=== PATIENT | male | born 1965 | race Caucasian/White ===

== ENCOUNTER 2021-05-09 19:44 | Observation (INO) ==
[2021-05-09] MEDS ORDERED: OXYMETAZOLINE 0.05% 30 ML BTL ONE (19:51)
[2021-05-09 21:22] LABS: Hematocrit (blood only) 39.5 % (42-52); Hemoglobin 13.4 g/dL (14.0-18.0); Immature Granulocytes # (auto) 0.04 K/uL (0.00-0.02); Immature Granulocytes % (auto) 0.3 %; Lymphocytes # (auto) 0.63 K/uL (1.2-3.4); Lymphocytes % (auto) 4.2 %; Mean Corpuscular Hemoglobin 29.8 pg (25-34); Mean Corpuscular Hgb Conc 33.9 g/dL (32-36); Mean Platelet Volume 9.2 fL (7.4-10.4); Monocytes # (auto) 0.18 K/uL (0.11-0.59); Monocytes % (auto) 1.2 %; Neutrophils # (auto) 14.18 K/uL (1.4-6.5); Neutrophils % (auto) 94.3 %; Platelet Count 315 K/uL (130-400); RDW Coefficient of Variation 13.2 % (11.5-14.5); RDW Standard Deviation 42.7 fL (36.4-46.3); Red Blood Count 4.49 M/uL (4.7-6.1); White Blood Count 15.03 K/uL (4.8-10.8)
[2021-05-09 21:47] LABS: Albumin Level 3.9 gm/dl (3.4-5.0); BUN Creatinine Ratio 18.7 (10-20); Calcium 9.2 mg/dl (8.5-10.1); Creatinine Clr Calc Pharmacy 70.7 ml/min; Est GFR (African American) 74.3 ml/min; Est GFR (Non-African American) 64.1 ml/min
[2021-05-09 21:48] LABS: Bilirubin,Total 0.7 mg/dl (0.2-1); Globulin 3.7 gm/dl (2.5-4.0); Total Protein 7.6 gm/dl (6.4-8.2)
--- NOTE | 2021-05-09 22:04 | Emergency Department Note ---
Impression & Plan Epistaxis, S/P nasal septoplasty ED Provider Note CHIEF COMPLAINT: Nosebleed HISTORY OF PRESENT ILLNESS: This 55-year-old male patient underwent septoplasty by Dr. Aguilar earlier today presents to the ED today via private vehicle accompanied by [employer] Officers for evaluation of epistaxis. The patient states his procedure was at 1 PM. By 5 while he was eating, he developed sudden onset of significant hemorrhage from the bilateral nares with blood running down the back of his throat. The patient reports large clots in the bilateral nares, 1 of which he blew out in the parking lot of the emergency department. The patient denies any dizziness or lightheadedness. No nausea or vomiting. He denies any dyspnea. He has been unable to get the bleeding to stop, so was brought to the emergency department for further evaluation. The patient denies any associated pain. REVIEW OF SYSTEMS: A complete 10 point review of systems was reviewed with the patient with pertinent positives and negatives as per history of present illness. All else were negative. ALLERGIES: None PHYSICAL EXAM: VITALS: Vitals are noted on the nurse's note and reviewed by myself. Vital signs stable. GENERAL: This is a 55-year-old white male, in no acute distress, nondiaphoretic, well-developed well-nourished. SKIN: The skin was without rashes, erythema, edema, or bruising. There is no tenting of the skin. Capillary refill less than 2 seconds. HEAD: Normocephalic atraumatic. EARS: External auditory canals clear, tympanic membranes pearly allen without erythema or effusion bilaterally. EYES: Conjunctivae without injection, sclerae without icterus. NOSE: Large clot noted in the left nostril. There is blood noted in the right nostril with some blood noted in the posterior pharynx. After removal of the clot at the direction of Dr. Aguilar, sutures were observed in the septum. MOUTH: Mucous membranes moist. Tonsils are not enlarged. Pharynx without erythema or exudate. Uvula midline. Airway patent. Tongue does not deviate. NECK: Supple without nuchal rigidity. No lymphadenopathy. No JVD. HEART: Regular rate and rhythm without murmurs gallops or rubs. LUNGS: Clear to auscultation bilaterally without wheezes, rales or rhonchi. No retractions or accessory muscle use. MUSCULOSKELETAL: No muscle atrophy, erythema, or edema noted. Full range of motion in all extremities. No tenderness to palpation. Normal gait. Strength 5/5 throughout. NEURO: Patient was alert and oriented to person place and time. No focal neurological deficits. ED COURSE/MDM: The patient was seen and evaluated as above. Previous medical records reviewed. I did consult with Dr. Lombardi, ENT on-call for Dr. Aguilar. She advised to leave the clot and packing/bandage in place, squirt a bunch of Afrin into the nose, and send the patient back to assisted. I had initially attempted to contact Dr. Aguilar, who did respond and is familiar with the patient. He advised that there was no packing in place and that the clot could be removed. He recommended placing a Rhino Rocket into the right nares, then remove the clot from the left nares and place another Rhino Rocket there. This was completed as directed. The bleeding did stop. The patient was monitored in the emergency department. Dr. Aguilar did agree to admit the patient due to bilateral nasal packings. Please see his dictation regarding ongoing management care of this patient. Differential diagnosis include postoperative hemorrhage,s anterior epistaxis, coagulopathy, traumatic injury, fracture, septal hematoma, posterior epistaxis, infections, as well as other pathologies. I attest that I have personally reviewed the patient's current medication list. Blood Pressure Screening: Patient was found to have a slightly elevated blood pressure due to circumstances. I do not believe that the patient requires hypertension monitoring. The chart was completed utilizing [employer] Speech voice recognition software. Grammatical errors, random word insertions, pronoun errors, and incomplete sentences are an occasional consequence of this system due to software limitations, ambient noise, and hardware issues. Any formal questions or concerns about the content, text, or information contained within the body of this dictation should be directly addressed to the provider for clarification. 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 Current Living Situation: Other Current Living Situation Comment: [facility] Feels Safe at Home: Yes Allergies Allergies Allergy/AdvReac Type Severity Reaction Status Date / Time No Known Drug Allergies Allergy Verified 05/09/21 12:44 Home Meds Home Medications Medication Instructions Recorded Confirmed atorvastatin 20 mg tablet 20 mg PO HS 02/20/21 05/09/21 levalbuterol tartrate 45 2 inh INHALATION QID PRN 02/20/21 05/09/21 mcg/actuation aerosol inhaler lisinopril 5 mg tablet 5 mg PO HS 02/20/21 05/09/21 meloxicam 15 mg tablet 15 mg PO DAILY 02/20/21 05/09/21 montelukast 10 mg tablet 10 mg PO DAILY 02/20/21 05/09/21 omeprazole 20 mg capsule,delayed 20 mg PO BID 02/20/21 05/09/21 release Alvesco 1 puff INHALATION BID 03/19/21 05/09/21 Previous Rx's Medication Instructions Recorded hydrocodone-acetaminophen 1 tab PO Q4H PRN #20 tab 05/09/21 Results & Data (ED) Vital Signs Vital Signs - 24 hr 05/09/21 19:47 05/09/21 21:42 Temperature 36.4 C L Temperature Source Temporal Artery Scan Pulse Rate 100 H Pulse Rate [Finger] 89 Respiratory Rate 20 18 Blood Pressure 117/83 Blood Pressure [Right Arm] 139/80 Blood Pressure Mean 94 Blood Pressure Mean [Right Arm] 99 Blood Pressure Position Sitting Pulse Oximetry 94 98 Oxygen Delivery Method Room Air Sepsis Recent Fever Within 48 Hours No Sepsis New/Unexplained Change in Mental Status No Sepsis Action Taken by Nursing No Action Required Laboratory Data Result diagrams: 05/09/21 21:15 05/09/21 21:15 Lab Results 05/09/21 05/09/21 Range/Units 21:15 21:15 WBC 15.03 H (4.8-10.8) K/uL RBC 4.49 L (4.7-6.1) M/uL Hgb 13.4 L (14.0-18.0) g/dL Hct 39.5 L (42-52) % MCV 88.0 (80-100) fL MCH 29.8 (25-34) pg MCHC 33.9 (32-36) g/dL RDW Std Deviation 42.7 (36.4-46.3) fL RDW Coeff of Mary Kate 13.2 (11.5-14.5) % Plt Count 315 (130-400) K/uL MPV 9.2 (7.4-10.4) fL Immature Gran % (Auto) 0.3 % Neut % (Auto) 94.3 % Lymph % (Auto) 4.2 % Long % (Auto) 1.2 % Eos % (Auto) 0.0 % Baso % (Auto) 0.0 % Neut # (Auto) 14.18 H (1.4-6.5) K/uL Lymph # (Auto) 0.63 L (1.2-3.4) K/uL Long # (Auto) 0.18 (0.11-0.59) K/uL Eos # (Auto) 0.00 (0-0.5) K/uL Baso # (Auto) 0.00 (0-0.2) K/uL Immature Gran # (Auto) 0.04 H (0.00-0.02) K/uL Sodium 137 (136-145) mmol/L Potassium (3.5-5.1) mmol/L Chloride 104 (98-107) mmol/L Carbon Dioxide 27 (21-32) mmol/L Anion Gap 6.0 (3-11) BUN 24 H (7-18) mg/dl Creatinine 1.27 (0.6-1.4) mg/dl Est Cr Clr Drug Dosing 70.7 ml/min Est GFR ( Amer) 74.3 ml/min Est GFR (Non-Af Amer) 64.1 ml/min BUN/Creatinine Ratio 18.7 (10-20) Glucose 127 H (70-99) mg/dl Calcium 9.2 (8.5-10.1) mg/dl Total Bilirubin 0.7 (0.2-1) mg/dl AST (15-37) U/L ALT 58 (12-78) U/L Alkaline Phosphatase 60 (45-117) U/L Total Protein 7.6 (6.4-8.2) gm/dl Albumin 3.9 (3.4-5.0) gm/dl Globulin 3.7 (2.5-4.0) gm/dl Albumin/Globulin Ratio 1.0 (0.9-2) Administered Medications Discontinued Medications Oxymetazoline HCl (Oxymetazoline 0.05% 30 Ml Btl) Confirm Administered Dose 150 sprays .ROUTE .STK-MED ONE Stop: 05/09/21 19:52 Last Admin: 05/09/21 20:44 Dose: Not Given Documented by: [id number] Discharge Plan Visit Data Chief Complaint: Nose Bleed (Major) Stated Complaint: NOSE BLEED AFTER PROCEDURE ED Provider: Thai Mackenzie ED Midlevel Provider: Shyla Duong Discharge Problem: Epistaxis, S/P nasal septoplasty Patient Disposition: Home - Self-Care Forms Stand Alone Forms: [facility], Virtual Emergency Department, Important Visit Information Prescriptions Prescriptions: No Action omeprazole 20 mg capsule,delayed release(DR/EC) 20 mg PO BID RF: 0 meloxicam 15 mg tablet 15 mg PO DAILY RF: 0 atorvastatin 20 mg tablet 20 mg PO HS RF: 0 lisinopril 5 mg tablet 5 mg PO HS RF: 0 montelukast 10 mg tablet 10 mg PO DAILY RF: 0 levalbuterol tartrate [Xopenex HFA] 45 mcg/actuation HFA aerosol inhaler 2 inh inhalation QID PRN (Reason: sob) RF: 0 Alvesco 160 mcg/actuation Hfa Aerosol Inhaler 1 puff INHALATION BID RF: 0 hydrocodone-acetaminophen 5-325 mg tablet 1 tab PO Q4H PRN (Reason: pain) Qty: 20 RF: 0 Referrals Referrals: [facility] [Primary Care Provider] -
[2021-05-09] MEDS ORDERED: ONDANSETRON INJ 2 MG/ML 2 ML VIAL IV PRN (22:24)
--- NOTE | 2021-05-09 22:33 | History & Physical Report ---
Date of Service May 09, 2021 Assessment & Plan (1) Epistaxis: Bilateral anterior packing of Merocel placed. Will observe overnight. (2) Acquired deviated nasal septum: History of Present Illness Chief Complaint: Epistaxis Primary Care Provider: ARTI Trejo 55-year-old prisoner who underwent septoplasty by me today developed acute onset of epistaxis 5 PM requiring packing in the emergency room. Because of the bilateral packing the patient will be observed overnight. Allergies Allergy/AdvReac Type Severity Reaction Status Date / Time No Known Drug Allergies Allergy Verified 05/09/21 12:44 Home Medications Medication Instructions Recorded Confirmed Type atorvastatin 20 mg tablet 20 mg PO HS 02/20/21 05/09/21 History levalbuterol tartrate 45 2 inh INHALATION QID PRN 02/20/21 05/09/21 History mcg/actuation aerosol inhaler lisinopril 5 mg tablet 5 mg PO HS 02/20/21 05/09/21 History meloxicam 15 mg tablet 15 mg PO DAILY 02/20/21 05/09/21 History montelukast 10 mg tablet 10 mg PO DAILY 02/20/21 05/09/21 History omeprazole 20 mg capsule,delayed 20 mg PO BID 02/20/21 05/09/21 History release Alvesco 1 puff INHALATION BID 03/19/21 05/09/21 History hydrocodone-acetaminophen 1 tab PO Q4H PRN #20 tab 05/09/21 05/09/21 Rx Past Med/Surg History Medical History Asthma GERD (gastroesophageal reflux disease) Hyperlipidemia Hypertension Surgical History Surgical history unknown Social History Smoking Status: Never smoker Preferred Language: Hungarian 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 Current Living Situation: Other Current Living Situation Comment: [facility] Feels Safe at Home: Yes Physical Exam Constitutional: WD/WN, vitals as above Eyes: PERRL, conjunctivae normal, anicteric sclerae ENMT: Nose: + septum abnormality (Status post septoplasty, Merisel packing both nares), + nare abnormality (Merocel packing both nostrils ) and + epistaxis (Large clot in the left nostril removed) Neck: trachea midline, no thyromegaly Respiratory: normal respiratory effort, lungs clear to auscultation Cardiovascular: RRR, no murmur, no edema Results & Data Results & Data ([facility]) Vital Signs (Past 12 Hours) Vital Signs Temp Pulse Pulse Resp BP BP Pulse Ox 05/09/21 21:42 89 18 139/80 98 05/09/21 19:47 36.4 C L 100 H 20 117/83 94 Code Status & VTE Plan VTE Prophylaxis Plan VTE Prophylaxis will be ordered: Yes PG Care Time/CCT Total # of Minutes Spent Total Time Spent with Patient: Total time spent is greater than 50% in coordination of care (as documented) at patient's floor/unit and/or counseling patient: Coding Level of Care Code None Diagnoses Epistaxis R04.0 Acquired deviated nasal septum J34.2
[2021-05-10] MEDS: oxyCODONE/ACETAMINOPHEN 5mg/325mg TAB PO PRN ×2 (10:08→12:32)
--- NOTE | 2021-05-10 15:35 | Discharge Summary ---
Date of Service May 10, 2021 Admission HPI Per Admitting Provider 55-year-old prisoner who underwent septoplasty by [facility] today developed acute onset of epistaxis 5 PM requiring packing in the emergency room. Because of the bilateral packing the patient will be observed overnight. Admission Exam (Per Admitting) Constitutional WD/WN, vitals as above Eyes PERRL, conjunctivae normal, anicteric sclerae ENMT Nose: + septum abnormality (Status post septoplasty, Merisel packing both nares), + nare abnormality (Merocel packing both nostrils ) and + epistaxis (Large clot in the left nostril removed) Neck trachea midline, no thyromegaly Respiratory normal respiratory effort, lungs clear to auscultation Cardiovascular RRR, no murmur, no edema Discharge Data Consultations 05/09/21 21:03 ED Decision to Admit Stat Hospital Course (1) S/P nasal septoplasty: He had epistaxis after septoplasty requiring bilateral anterior packing. Because of the anterior packing bilaterally he was observed overnight with monitoring. He had no further bleeding. The right nasal packing was removed. And [facility]. He is to have the left side packing removed at the [facility] Thursday or return to [facility] for removal on Thursday. (2) Epistaxis: Controlled with anterior packing. Discharge Instructions Please remove left-sided nasal packing on Thursday or send back to my office on Thursday for removal of packing. Please cover with antibiotic and pain medicine as needed. Please give him Afrin for the right nostril followed by saline nose Coding Level of Care Code None Diagnoses S/P nasal septoplasty Z98.890 Epistaxis R04.0
== END 2021-05-10 20:00 ==
LOC: ED 19:44 → 3E 19:44